=== PATIENT | female | born 1975 | race Caucasian/White ===

== ENCOUNTER 2023-03-07 05:03 | Inpatient (IN) | payer SELFPAY ==
[2023-03-07] VITALS (38 sets, daily range): BP systolic 110–166; BP diastolic 52–129; PULSE 65–117; RESP 11–28; TEMP 98.1–99.5; O2SAT 96–100
[~2023-03-07] VITALS: Ht 170.2 cm; Wt 82.3 kg
[2023-03-07] MEDS ORDERED: SODIUM CHLORIDE 0.9% 1000ML 1,000 ML IV STA (05:23)
[2023-03-07] MEDS ORDERED: Morphine 4mg INJECTION 4 MG/ML INJ IV STA (05:26)
[2023-03-07] MEDS ORDERED: ONDANSETRON HCL INJ 2MG/ML 2ML 2 MG/ML VIAL IV STA (05:26)
[2023-03-07] MEDS ORDERED: Morphine 4mg INJECTION 4 MG/ML INJ ONE (05:31)
[2023-03-07] MEDS ORDERED: ONDANSETRON HCL INJ 2MG/ML 2ML 2 MG/ML VIAL ONE (05:31)
[2023-03-07 05:38] LABS: BASOPHILS # (AUTO) 0.1 (0.0-0.1); BASOPHILS % 2.4 % (0.0-1.0); EOSINOPHILS % 0.4 % (0.0-6.0); MEAN CORPUSCULAR HEMOGLOBIN 16.6 pg (28-32); MEAN CORPUSCULAR HGB CONC 24.8 g/dL (31-35); MEAN CORPUSCULAR VOLUME 67.1 fL (81-99); MONOCYTES # (AUTO) 0.4 (0.2-0.8); MONOCYTES % 8.6 % (4.4-11.3); NEUTROPHILS # (AUTO) 3.5 (2.1-6.9); NEUTROPHILS % 69.2 % (38.7-80.0); RED BLOOD COUNT 3.07 x10e6/uL (3.6-5.1); RED CELL DISTRIBUTION WIDTH 25.4 % (11.7-14.4)
[2023-03-07 05:42] LABS: HEMATOCRIT 20.6 % (34.2-44.1); HEMOGLOBIN 5.1 g/dL (12.0-16.0); PLATELET COUNT 64 x10e3/uL (140-360)
[2023-03-07] MEDS ORDERED: SODIUM CHLORIDE 0.9% 250ML 250 ML IV ONE ×2 (05:45→20:00)
[2023-03-07] MEDS ORDERED: Morphine 4mg INJECTION 4 MG/ML INJ IV PRN (06:00)
[2023-03-07] MEDS ORDERED: SODIUM CHLORIDE 0.9% 1000ML 1,000 ML IV SCH (06:00)
[2023-03-07 06:01] LABS: ALBUMIN 3.8 g/dL (3.5-5.0); ALBUMIN/GLOBULIN RATIO 0.9 (0.8-2.0); ANION GAP 18.5 mmol/L (8-16); CREATININE, SERUM 0.68 mg/dL (0.57-1.11); POTASSIUM 3.5 mmol/L (3.5-5.1)
[2023-03-07] MEDS ORDERED: IOPAMIDOL 370 MG/ML 100 ML INFUS..BTL INJ ONE ×2 (06:41→07:23)
[2023-03-07] MEDS ORDERED: LORAZEPAM INJ 2 MG/ML VIAL IV PRN ×3 (07:30→12:45)
[2023-03-07 08:34] LABS: ANISOCYTOSIS MARKED; HYPOCHROMASIA MODERATE; MICROCYTOSIS MODERATE; PLATELET ESTIMATE MODERATELY DECREASED; PLATELET MORPHOLOGY COMMENT FEW LARGE; RBC MORPHOLOGY COMMENT ABNORMAL
[2023-03-07] MEDS ORDERED: SODIUM CHLORIDE 0.9% 250ML 250 ML ONE ×2 (08:45→12:23)
[2023-03-07] MEDS ORDERED: LACTATED RINGER'S 1,000 ML INJ SCH (09:30)
[2023-03-07] MEDS ORDERED: LIDOCAINE HCL 2% LOCAL INJ 5 ML SDV VIAL INJ ONE (12:46)
[2023-03-07] MEDS ORDERED: PROPOFOL IV EMULSION 10 MG/ML 20 ML VIAL ONE (12:46)
[2023-03-07] MEDS ORDERED: FENTANYL CITRATE/PF 100MCG/2 ML INJ ONE (13:16)
[2023-03-07] MEDS ORDERED: SOD CHL IV SCH (14:00)
[2023-03-07] MEDS ORDERED: THIAMINE HCL IV SCH (14:00)
[2023-03-07] MEDS ORDERED: DEXTROSE IV SCH (14:00)
[2023-03-07 19:00] LABS: HEMATOCRIT 24.2 % (34.2-44.1); HEMOGLOBIN 6.9 g/dL (12.0-16.0)
[2023-03-07 19:35] LABS: % IRON SATURATION 88 % (15-50); IRON 406 ug/dL (50-170); TOTAL IRON BINDING CAPACITY 462 ug/dL (261-478); TRANSFERRIN 330 mg/dL (180-382)
[2023-03-07] MEDS: CHLORDIAZEPOXIDE HCL 25 MG CAP PO SCH (20:13)
[2023-03-08] VITALS (52 sets, daily range): BP systolic 124–175; BP diastolic 61–150; PULSE 57–146; RESP 11–26; TEMP 97.9–99.1; O2SAT 93–100
[2023-03-08] MEDS: LORAZEPAM INJ 2 MG/ML VIAL IV PRN ×2 (00:32→09:06)
[2023-03-08] MEDS ORDERED: SODIUM CHLORIDE 0.9% 250ML 250 ML ONE (01:18)
[2023-03-08 01:28] LABS: PROTHROMBIN TIME 13.7 seconds (11.9-14.5)
[2023-03-08 08:14] LABS: BASOPHILS % 0.6 % (0.0-1.0); EOSINOPHILS # (AUTO) 0.1 (0.0-0.4); EOSINOPHILS % 1.6 % (0.0-6.0); HEMATOCRIT 30.5 % (34.2-44.1); HEMOGLOBIN 8.9 g/dL (12.0-16.0); LYMPHOCYTES # (AUTO) 0.7 (1.0-3.2); LYMPHOCYTES % 14.8 % (18.0-39.1); MEAN CORPUSCULAR HEMOGLOBIN 22.1 pg (28-32); MEAN CORPUSCULAR HGB CONC 29.2 g/dL (31-35); MEAN CORPUSCULAR VOLUME 75.9 fL (81-99); MONOCYTES # (AUTO) 0.3 (0.2-0.8); MONOCYTES % 6.7 % (4.4-11.3); NEUTROPHILS # (AUTO) 3.8 (2.1-6.9); NEUTROPHILS % 76.1 % (38.7-80.0); RED BLOOD COUNT 4.02 x10e6/uL (3.6-5.1); RED CELL DISTRIBUTION WIDTH 23.6 % (11.7-14.4)
[2023-03-08] MEDS: CHLORDIAZEPOXIDE HCL 25 MG CAP PO SCH ×2 (08:22→20:58)
[2023-03-08 08:25] LABS: PLATELET COUNT 22 x10e3/uL (140-360)
[2023-03-08 08:43] LABS: ALBUMIN 3.1 g/dL (3.5-5.0); ALBUMIN/GLOBULIN RATIO 0.9 (0.8-2.0); ANION GAP 11.7 mmol/L (8-16); CALCIUM 8.9 mg/dL (8.4-10.2); CREATININE, SERUM 0.65 mg/dL (0.57-1.11); POTASSIUM 3.7 mmol/L (3.5-5.1)
[2023-03-08 13:14] LABS: AMPHETAMINES SCREEN,URINE NEGATIVE (NEGATIVE); BENZODIAZEPINES SCREEN,URINE POSITIVE (NEGATIVE); PHENCYCLIDINE SCREEN,URINE NEGATIVE (NEGATIVE)
[2023-03-08] MEDS ORDERED: ONDANSETRON HCL INJ 2MG/ML 2ML 2 MG/ML VIAL ONE (14:04)
[2023-03-09] VITALS (29 sets, daily range): BP systolic 104–170; BP diastolic 54–112; PULSE 68–95; RESP 12–24; TEMP 98.6–99.1; O2SAT 99–100
[2023-03-09] MEDS: LORAZEPAM INJ 2 MG/ML VIAL IV PRN ×2 (00:14→22:35)
[2023-03-09] MEDS: ONDANSETRON HCL INJ 2MG/ML 2ML 2 MG/ML VIAL IV PRN ×2 (00:14→14:03)
[2023-03-09 05:26] LABS: BASOPHILS # (AUTO) 0.1 (0.0-0.1); EOSINOPHILS # (AUTO) 0.1 (0.0-0.4); EOSINOPHILS % 2.1 % (0.0-6.0); HEMOGLOBIN 8.6 g/dL (12.0-16.0); LYMPHOCYTES # (AUTO) 0.8 (1.0-3.2); LYMPHOCYTES % 14.6 % (18.0-39.1); MEAN CORPUSCULAR HEMOGLOBIN 22.5 pg (28-32); MEAN CORPUSCULAR HGB CONC 29.7 g/dL (31-35); MEAN CORPUSCULAR VOLUME 75.9 fL (81-99); MONOCYTES # (AUTO) 0.3 (0.2-0.8); MONOCYTES % 4.9 % (4.4-11.3); NEUTROPHILS # (AUTO) 4.1 (2.1-6.9); NEUTROPHILS % 77.2 % (38.7-80.0); RED BLOOD COUNT 3.82 x10e6/uL (3.6-5.1); RED CELL DISTRIBUTION WIDTH 24.1 % (11.7-14.4)
[2023-03-09 05:29] LABS: PLATELET COUNT 18 x10e3/uL (140-360)
[2023-03-09 05:39] LABS: ALBUMIN 2.9 g/dL (3.5-5.0); ALBUMIN/GLOBULIN RATIO 0.9 (0.8-2.0); ANION GAP 11.3 mmol/L (8-16); CALCIUM 8.6 mg/dL (8.4-10.2); CREATININE, SERUM 0.65 mg/dL (0.57-1.11); MAGNESIUM 1.7 MG/DL (1.3-2.1); POTASSIUM 3.3 mmol/L (3.5-5.1)
[2023-03-09] MEDS: CHLORDIAZEPOXIDE HCL 25 MG CAP PO SCH ×2 (08:41→21:22)
[2023-03-09 10:40] LABS: ANISOCYTOSIS MODERATE; HYPOCHROMASIA MODERATE; MICROCYTOSIS MODERATE; PLATELET ESTIMATE MARKEDLY DECREASED; PLATELET MORPHOLOGY COMMENT NORMAL; POLYCHROMASIA FEW; RBC MORPHOLOGY COMMENT ABNORMAL
[2023-03-09] MEDS ORDERED: NEXIUM40 MG PO (16:19)
[2023-03-09] MEDS ORDERED: TYLENOL325 MG PO (16:19)
[2023-03-09] MEDS ORDERED: MOTRIN200 MG PO (16:19)
[2023-03-09] MEDS: SUCRALFATE 1 GM TAB PO SCH ×2 (18:06→21:22)
[2023-03-10] VITALS: BP 130/63; RESP 16; TEMP 98.5; O2SAT 100
[2023-03-10 01:00] VITALS: BP 124/65; RESP 15; O2SAT 100
[2023-03-10 07:00] VITALS: BP 101/52; PULSE 81; RESP 16; TEMP 98; O2SAT 99
[2023-03-10] MEDS: SUCRALFATE 1 GM TAB PO SCH ×3 (07:30→16:41)
[2023-03-10] MEDS ORDERED: PANTOPRAZOLE SOD 40 MG TABEC PO SCH (07:30)
[2023-03-10 08:07] LABS: BASOPHILS # (AUTO) 0.1 (0.0-0.1); BASOPHILS % 1.6 % (0.0-1.0); EOSINOPHILS # (AUTO) 0.2 (0.0-0.4); EOSINOPHILS % 3.3 % (0.0-6.0); HEMATOCRIT 29.6 % (34.2-44.1); HEMOGLOBIN 8.5 g/dL (12.0-16.0); LYMPHOCYTES # (AUTO) 0.9 (1.0-3.2); LYMPHOCYTES % 17.3 % (18.0-39.1); MEAN CORPUSCULAR HEMOGLOBIN 22.4 pg (28-32); MEAN CORPUSCULAR HGB CONC 28.7 g/dL (31-35); MEAN CORPUSCULAR VOLUME 77.9 fL (81-99); MONOCYTES # (AUTO) 0.3 (0.2-0.8); MONOCYTES % 6.1 % (4.4-11.3); NEUTROPHILS # (AUTO) 3.6 (2.1-6.9); NEUTROPHILS % 71.5 % (38.7-80.0); RED CELL DISTRIBUTION WIDTH 24.2 % (11.7-14.4)
[2023-03-10 08:09] LABS: PLATELET COUNT 19 x10e3/uL (140-360)
[2023-03-10 08:26] LABS: ALBUMIN 2.9 g/dL (3.5-5.0); ALBUMIN/GLOBULIN RATIO 0.9 (0.8-2.0); ANION GAP 11.2 mmol/L (8-16); CALCIUM 8.5 mg/dL (8.4-10.2); CREATININE, SERUM 0.61 mg/dL (0.57-1.11); MAGNESIUM 1.7 MG/DL (1.3-2.1); POTASSIUM 3.2 mmol/L (3.5-5.1)
[2023-03-10] MEDS: CHLORDIAZEPOXIDE HCL 25 MG CAP PO SCH (08:29)
[2023-03-10] MEDS: POTASSIUM CHLORIDE 20MEQ/100ML 100 ML IV SCH ×2 (09:13→11:00)
[2023-03-10 11:00] VITALS: BP 108/55; PULSE 69; RESP 19; TEMP 98.4; O2SAT 99
[2023-03-10] MEDS ORDERED: ONDANSETRON ODT4 MG PO (13:08)
[2023-03-10] MEDS ORDERED: XIFAXAN550 MG PO (13:08)
[2023-03-10] MEDS ORDERED: CARAFATE1 GM PO (13:08)
[2023-03-10] MEDS ORDERED: CHLORDIAZEPOXID25 MG PO (13:08)
[2023-03-10] MEDS ORDERED: PROTONIX40 MG/ML PO (13:08)
[2023-03-10 13:26] VITALS: BP 108/55; PULSE 69; RESP 19; TEMP 98.4; O2SAT 99
[2023-03-10] MEDS ORDERED: MAGNESIUM SULF 1GRAM/DEXTROSE 100 ML IV ONE (13:30)
[2023-03-10 15:00] VITALS: BP 137/80; PULSE 71; RESP 17; TEMP 98.7; O2SAT 99
== END 2023-03-10 17:20 | disposition home or self-care (01) | DRG 379 ==
LOC: ER 05:08 → ERHOLD 05:48 → ICU 07:38
PROVIDERS: ADMIT Internal Medicine; ATTEND Internal Medicine
PROC: 30233N1 Transfusion of Nonautologous Red Blood Cells into Peripheral Vein, Percutaneous Approach (ICD-10-PCS; 2023-03-07)
PROC: 30233R1 Transfusion of Nonautologous Platelets into Peripheral Vein, Percutaneous Approach (ICD-10-PCS; 2023-03-08)
PROC: 02HV33Z Insertion of Infusion Device into Superior Vena Cava, Percutaneous Approach (ICD-10-PCS; 2023-03-08)
PROC: 0DJ08ZZ Inspection of Upper Intestinal Tract, Via Natural or Artificial Opening Endoscopic (ICD-10-PCS; principal; 2023-03-08 13:46)
DX: K28.4 Chronic or unspecified gastrojejunal ulcer with hemorrhage (principal); D50.0 Iron deficiency anemia secondary to blood loss (chronic); F10.20 Alcohol dependence, uncomplicated; K76.0 Fatty (change of) liver, not elsewhere classified; D69.6 Thrombocytopenia, unspecified; N64.9 Disorder of breast, unspecified; E11.9 Type 2 diabetes mellitus without complications; I10 Essential (primary) hypertension; E87.6 Hypokalemia; E83.42 Hypomagnesemia; N64.89 Other specified disorders of breast; F41.9 Anxiety disorder, unspecified; R74.01 Elevation of levels of liver transaminase levels; F12.90 Cannabis use, unspecified, uncomplicated; Z98.84 Bariatric surgery status
CPT/HCPCS: 0223U; 36415; 36569; 43235; 71045; 74174; 76705; 80053; 80307; 81025; 82550; 82553; 82607; 83540; 83690; 83735; 83880; 84100; 84466; 84484; 84702; 85014; 85018; 85025; 85379; 85610; 85730; 86850; 86900; 86920; 93005; 96361; 99284; J2001; J2060; J2270; J2405; J3411; J3475; J3480; J7030; J7042; J7050; P9016; P9034; Q9967